=== PATIENT | female | born 1950 | race American Indian/Alaskan Native ===

== ENCOUNTER 2017-12-27 12:08 | Outpatient (CLI) | payer MEDICARE, MEDICAID ==
--- NOTE | 2017-12-27 14:02 | XRay Report ---
RIGHT FOOT, 3 views: History: Pain in right foot. No comparison. There is borderline to mild osteopenia. No evidence for fracture, erosive joint pathology or bone lesion. There are minimal degenerative changes in the midfoot. A moderate plantar spur is identified. IMPRESSION: No acute process. Minimal degenerative changes. Borderline mild osteopenia.
== END 2017-12-27 12:09 | disposition home or self-care (01) ==
LOC: XRAY 12:08
PROVIDERS: ATTEND Orthopaedic Surgery
DX: M19.071 Primary osteoarthritis, right ankle and foot (principal)